=== PATIENT | male | born 1980 ===

== ENCOUNTER 2021-08-08 19:30 | Emergency (ER) | payer SELFPAY ==
[2021-08-08] MEDS ORDERED: IBUPROFEN 800 MG TAB PO ONE (21:05)
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
[2021-08-08] MEDS ORDERED: KETOROLAC 30 MG/1 ML INJ IM ONE (22:01)
[2021-08-08] MEDS ORDERED: traMADol 50 MG TAB PO ONE (22:17)
[2021-08-09 00:58] VITALS: BP 131/80
== END 2021-08-09 01:00 | disposition home or self-care (01) ==
LOC: ED 19:30
DX: S16.1XXA Strain of muscle, fascia and tendon at neck level, initial encounter (principal); S39.012A Strain of muscle, fascia and tendon of lower back, initial encounter; Z79.899 Other long term (current) drug therapy; V87.7XXA Person injured in collision between other specified motor vehicles (traffic), initial encounter; Y93.89 Activity, other specified; Y92.488 Other paved roadways as the place of occurrence of the external cause; Y99.8 Other external cause status
CPT/HCPCS: 72040; 72100; 99283